=== PATIENT | female | born 1950 | race Caucasian/White ===

== ENCOUNTER 2022-02-01 21:12 | Observation (INO) ==
[2022-02-02] MEDS ORDERED: Ondansetron ODT 4 MG TAB.RAPDIS SL PRN (00:40)
[2022-02-02] MEDS ORDERED: *HR* HYDROcodone/Acet 5/325 mg TABLET PO PRN (00:40)
[2022-02-02] MEDS ORDERED: Naloxone 0.4 MG/ML INJ IVP PRN (00:40)
[2022-02-02] MEDS ORDERED: Acetaminophen 325 MG TABLET PO PRN (00:40)
[2022-02-02] MEDS ORDERED: Melatonin 3 MG TABLET PO PRN (00:40)
[2022-02-02] MEDS ORDERED: *HR* OxyCODONE Immed Rel 5 MG TABLET PO PRN (00:40)
[2022-02-02] MEDS ORDERED: *HR* HYDROmorphone (PF) 1 MG/ML SYRINGE IVP ONE (01:13)
[2022-02-02] MEDS ORDERED: D5% in Water 1,000 ML IVC PRN (01:43)
[2022-02-02] MEDS ORDERED: *HR* Dextrose 50 % in Water (Syg) 50 ML SYRINGE IVP PRN (01:43)
[2022-02-02] MEDS ORDERED: Dextrose Gel 15 GM/37.5 ML TUBE PO PRN ×2 (01:43)
[2022-02-02 04:11] LABS: Hematocrit 44.2 % (35.3-44.9); Hemoglobin 14.6 g/dL (11.5-15.4); Mean Corpuscular Hemoglobin 30.8 pg (28.0-33.3); Mean Corpuscular Volume 93.2 fL (83.0-100.0); Mean Platelet Volume 11.5 fL (9.4-12.4); Platelet Count 299 K/mcL (140-400); Red Blood Count 4.74 M/mcL (3.82-4.97); Red Cell Distribution Width 13.2 % (11.5-14.5); White Blood Count 13.7 K/mcL (4.3-11.1)
[2022-02-02 04:17] LABS: INR 1.2; Prothrombin Time 13.7 Seconds (9.4-12.1)
[2022-02-02 04:20] LABS: Activated Partial Thrombo Time 33.5 Seconds (26.0-36.0)
[2022-02-02 04:28] LABS: Magnesium 2.1 mg/dL (1.6-2.6); Phosphorous 4.4 mg/dL (2.7-4.5)
[2022-02-02] MEDS: Insulin LISPRO 300 UNITS/3 ML VIAL SUBQ SCH ×3 (07:24→19:39)
[2022-02-02] MEDS ORDERED: cefTRIAXone 1,000 MG in 0.9 % Sodium Chloride 10 ML IVP SCH (09:00)
[2022-02-02] MEDS: CeFAZolin 2,000 MG/120 ML BAG IVPB SCH ×2 (10:28→16:00)
[2022-02-02] MEDS ORDERED: Famotidine 20 MG/2 ML VIAL IVP ONE (11:59)
[2022-02-02] MEDS ORDERED: Acetaminophen IV 1,000 MG/100 ML BAG IVPB ONE (12:15)
[2022-02-02] MEDS ORDERED: Ropivacaine/PF 0.5% 30 ML VIAL ONE (14:34)
[2022-02-02] MEDS ORDERED: *HR* Midazolam HCl 2 MG/2 ML VIAL ONE ×2 (14:34→15:52)
[2022-02-02] MEDS ORDERED: Lidocaine -MPF 2% 2 ML VIAL ONE (15:52)
[2022-02-02] MEDS ORDERED: *HR* Propofol 200 MG/20 ML VIAL IVP ONE (15:52)
[2022-02-02] MEDS ORDERED: *HR* FentaNYL (PF) 100 MCG/2 ML VIAL ONE (15:52)
[2022-02-02] MEDS ORDERED: *HR* Rocuronium Bromide 50 MG/5 ML VIAL ONE (15:52)
[2022-02-02] MEDS ORDERED: Ondansetron 4 MG/2 ML VIAL ONE (15:52)
[2022-02-02] MEDS ORDERED: EPHEDrine 50 MG/ML VIAL ONE (16:40)
[2022-02-02] MEDS ORDERED: Sugammadex Sodium 200 MG/2 ML VIAL IV ONE (16:53)
[2022-02-03] MEDS: CeFAZolin 2,000 MG/120 ML BAG IVPB SCH ×2 (00:50→08:48)
[2022-02-03 04:56] LABS: Basophils % 0.2 %; Hematocrit 39.8 % (35.3-44.9); Immature Granulocytes % 0.4 % (0-4); Lymphocytes % 7.8 %; Mean Corpuscular HGB Conc 32.4 g/dL (31.6-35.5); Mean Corpuscular Hemoglobin 30.6 pg (28.0-33.3); Mean Corpuscular Volume 94.5 fL (83.0-100.0); Mean Platelet Volume 11.9 fL (9.4-12.4); Monocytes # 0.8 K/mcL (0.0-1.3); Monocytes % 6.5 %; Neutrophils # 10.5 K/mcL (1.6-8.9); Platelet Count 254 K/mcL (140-400); Red Blood Count 4.21 M/mcL (3.82-4.97); Red Cell Distribution Width 13.5 % (11.5-14.5); Segmented Neutrophils % 85.1 %; White Blood Count 12.4 K/mcL (4.3-11.1)
[2022-02-03 04:59] LABS: Hemoglobin 12.9 g/dL (11.5-15.4)
[2022-02-03 05:13] LABS: Calcium 8.4 mg/dL (8.6-10.3); Magnesium 1.9 mg/dL (1.6-2.6); Potassium 3.6 mEq/L (3.5-5.1)
[2022-02-03] MEDS ORDERED: Insulin LISPRO 300 UNITS/3 ML VIAL SUBQ SCH ×2 (07:30→21:00)
[2022-02-03] MEDS ORDERED: atenoloL 50 MG TABLET PO SCH (09:00)
[2022-02-03] MEDS ORDERED: lisinopriL 20 MG TABLET PO SCH (09:00)
[2022-02-03] MEDS ORDERED: gemfibroziL 600 MG TABLET PO SCH (09:00)
[2022-02-03 10:23] VITALS: BP 126/104; PULSE 69; TEMP 97.9; O2SAT 90
== END 2022-02-03 14:25 | disposition home health service (06) ==
LOC: 4WAOSI → SUATTDRO 02-02
PROVIDERS: ADMIT Internal Medicine; ATTEND Pharmacist